=== PATIENT | female | born 1995 | race Caucasian/White ===

== ENCOUNTER 2018-09-28 11:36 | Emergency (ER) | payer OTHER ==
[~2018-09-28] VITALS: Ht 157.5 cm; Wt 49.0 kg
[2018-09-28 11:54] VITALS: BP 107/58
[2018-09-28 12:14] LABS: BILIRUBIN,URINE NEGATIVE (NEG); CLARITY,URINE CLEAR; COLOR,URINE YELLOW; NITRITE,URINE NEGATIVE (NEG); PROTEIN,URINE NEGATIVE (NEG-TRACE); UROBILINOGEN,URINE 0.2 mg/dL (0.2 mg/dL)
[2018-09-28 12:36] LABS: BACTERIA,URINE FEW /HPF (0-FEW); RBC,URINE OCC /HPF (0-2); SQUAMOUS EPITHELIAL CELL,UR FEW /LPF; WBC,URINE OCC /HPF (0-4)
--- NOTE | 2018-09-28 13:03 | RAD ---
OB < 14 WKS History: Abdominal pain in Comparison: None. Findings: Multiple transabdominal sonographic images of the pelvis are submitted. Uterus measured 10.6 x 8.7 x 9.9 cm. There is a single intrauterine gestational sac with identifiable pole. Gestational sac morphology is within normal limits. Amniotic fluid volume is within normal limits. anatomy and placenta are not well visualized at this age of the . [place]-rump length measurement of 4.36 cm corresponds 11 weeks 1 day. Adjusted ultrasound age is 11 weeks 1 day with estimated delivery date by ultrasound of 04/18/2019. LMP dating is not provided. cardiac activity 173 bpm. Left ovary measured 3.1 x 4 x 2.7 cm. There is normal low resistance vascularity of the left ovary. There is a focus of different echogenicity of the left ovary about 3.2 x 1.9 cm. Right ovary measured 2.7 x 1.1 x 1.6 cm with normal low resistance vascularity. No significant free fluid is demonstrated. Impression: 1. There is a single viable intrauterine with adjusted ultrasound age of 11 weeks 1 day with estimated delivery date by ultrasound 04/18/2019. There is hemorrhagic or collapsed corpus luteal cyst of the left ovary. Electronically signed by: Jose Fiore MD (09/28/2018 12:59 PM) [id number]
[2018-09-28 13:15] LABS: BASO % 1 % (0-3); EOS # 0.1 x10^3/uL (0.0-0.7); EOS % 1 % (0-3); HEMOGLOBIN 11.6 g/dL (12.0-15.5); LYMPH # 1.2 x10^3/uL (1.0-4.8); LYMPH % 16 % (24-48); MEAN CORPUSCULAR HEMOGLOBIN 29 pg (25-35); MEAN CORPUSCULAR HGB CONC 33 g/dL (31-37); MEAN CORPUSCULAR VOLUME 86 fL (79-100); MONO # 0.6 x10^3/uL (0.0-1.1); MONO % 8 % (0-9); NEUT # 5.7 x10^3uL (1.8-7.7); NEUT % 75 % (31-73); PLATELET COUNT 232 x10^3/uL (140-400); RED BLOOD COUNT 4.07 x10^6/uL (3.50-5.40); RED CELL DISTRIBUTION WIDTH 16.6 % (11.5-14.5); WHITE BLOOD COUNT 7.7 x10^3/uL (4.0-11.0)
[2018-09-28 13:34] LABS: CALCIUM 9.1 mg/dL (8.5-10.1); CREATININE 0.6 mg/dL (0.6-1.0); GFR 123.9; POTASSIUM 3.6 mmol/L (3.5-5.1)
[2018-09-28 13:42] LABS: ALBUMIN 3.5 g/dL (3.4-5.0); ALBUMIN/GLOBULIN RATIO 0.8 (1.0-1.7); TOTAL BILIRUBIN 0.2 mg/dL (0.2-1.0)
[2018-09-28] MEDS ORDERED: METR500T PO (14:21)
--- NOTE | 2018-09-28 14:22 | PHYS DOC ---
Past Medical History Past Medical History: No Pertinent History Past Surgical History: No Surgical History Alcohol Use: None Drug Use: None Adult General Chief Complaint Chief Complaint: ABDOMINAL PAIN IN HPI HPI Patient is a 23 year old female 3 para 2 currently presenting with mild generalized abdominal pain that has been going on intermittently for 4 days. Patient denies any vaginal bleeding. She states her last menstrual cycle was in June 2018 but she does not remember the date. Denies any nausea vomiting. Denies any back pain. She states she has not seen an AERIAL ERECTOR yet. Review of Systems Review of Systems Constitutional: Denies fever or chills [] Eyes: Denies change in visual acuity, redness, or eye pain [] HENT: Denies nasal congestion or sore throat [] Respiratory: Denies cough or shortness of breath [] Cardiovascular: No additional information not addressed in HPI [] GI: Reports abdominal pain in , denies nausea, vomiting, bloody stools or diarrhea [] : Denies dysuria or hematuria [] Musculoskeletal: Denies back pain or joint pain [] Integument: Denies rash or skin lesions [] Neurologic: Denies headache, focal weakness or sensory changes [] All other systems were reviewed and found to be within normal limits, except as documented in this note. Allergies Allergies Allergies Coded Allergies Type Severity Reaction Last Updated Verified No Known Drug Allergies 10/09/16 No Physical Exam Physical Exam Constitutional: Well developed, well nourished, no acute distress, non-toxic appearance. [] HENT: Normocephalic, atraumatic, bilateral external ears normal, oropharynx moist, no oral exudates, nose normal. [] Eyes: PERRLA, EOMI, conjunctiva normal, no discharge. [] Neck: Normal range of motion, no tenderness, supple, no stridor. [] Cardiovascular:Heart rate regular rhythm, no murmur [] Lungs & Thorax: Bilateral breath sounds clear to auscultation [] Abdomen: Bowel sounds normal, soft, no tenderness, no masses, no pulsatile masses. [] Pelvic exam External pelvic appears normal, cervix is closed, no CMT, no adnexal tenderness. Small amount of white discharge in the vaginal vault. Skin: Warm, dry, no erythema, no rash. [] Back: No tenderness, no CVA tenderness. [] Extremities: No tenderness, no cyanosis, no clubbing, ROM intact, no edema. [] Neurologic: Alert and oriented X 3, normal motor function, normal sensory function, no focal deficits noted. [] Psychologic: Affect normal, judgement normal, mood normal. [] Current Patient Data Vital Signs Vital Signs Date Time Temp Pulse Resp B/P (MAP) Pulse Ox O2 Delivery O2 Flow Rate FiO2 09/28/18 11:54 98.6 75 16 107/58 (74) 95 Room Air 98.6 Lab Values Laboratory Tests Test 09/28/18 11:50 09/28/18 12:02 09/28/18 12:05 09/28/18 13:05 Urine Collection Type Unknown Urine Color Yellow Urine Clarity Clear Urine pH 8.0 Urine Specific [place] 1.020 Urine Protein Negative mg/dL (NEG-TRACE) Urine Glucose (UA) Negative mg/dL (NEG) Urine Ketones (Stick) Negative mg/dL (NEG) Urine Blood Negative (NEG) Urine Nitrite Negative (NEG) Urine Bilirubin Negative (NEG) Urine Urobilinogen Dipstick 0.2 mg/dL (0.2 mg/dL) Urine Leukocyte Esterase Negative (NEG) Urine RBC Occ /HPF (0-2) Urine WBC Occ /HPF (0-4) Urine Squamous Epithelial Cells Few /LPF Urine Bacteria Few /HPF (0-FEW) POC Urine HCG, Qualitative Hcg positive (Negative) Chlamydia DNA Probe Negative (Negative) Neisseria gonorrhoeae DNA Probe Negative (Negative) White Blood Count 7.7 x10^3/uL (4.0-11.0) Red Blood Count 4.07 x10^6/uL (3.50-5.40) Hemoglobin 11.6 g/dL (12.0-15.5) L Hematocrit 35.0 % (36.0-47.0) L Mean Corpuscular Volume 86 fL (79-100) Mean Corpuscular Hemoglobin 29 pg (25-35) Mean Corpuscular Hemoglobin Concent 33 g/dL (31-37) Red Cell Distribution Width 16.6 % (11.5-14.5) H Platelet Count 232 x10^3/uL (140-400) Neutrophils (%) (Auto) 75 % (31-73) H Lymphocytes (%) (Auto) 16 % (24-48) L Monocytes (%) (Auto) 8 % (0-9) Eosinophils (%) (Auto) 1 % (0-3) Basophils (%) (Auto) 1 % (0-3) Neutrophils # (Auto) 5.7 x10^3uL (1.8-7.7) Lymphocytes # (Auto) 1.2 x10^3/uL (1.0-4.8) Monocytes # (Auto) 0.6 x10^3/uL (0.0-1.1) Eosinophils # (Auto) 0.1 x10^3/uL (0.0-0.7) Basophils # (Auto) 0.0 x10^3/uL (0.0-0.2) Maternal Serum HCG Beta Subunit 101163 mIU/mL (0-5) H Sodium Level 135 mmol/L (136-145) L Potassium Level 3.6 mmol/L (3.5-5.1) Chloride Level 99 mmol/L (98-107) Carbon Dioxide Level 27 mmol/L (21-32) Anion Gap 9 (6-14) Blood Urea Nitrogen 9 mg/dL (7-20) Creatinine 0.6 mg/dL (0.6-1.0) Estimated GFR (Cockcroft-Gault) 123.9 BUN/Creatinine Ratio 15 (6-20) Glucose Level 87 mg/dL (70-99) Calcium Level 9.1 mg/dL (8.5-10.1) Total Bilirubin 0.2 mg/dL (0.2-1.0) Aspartate Amino Transferase (AST) 20 U/L (15-37) Alanine Aminotransferase (ALT) 19 U/L (14-59) Alkaline Phosphatase 63 U/L (46-116) Total Protein 8.0 g/dL (6.4-8.2) Albumin 3.5 g/dL (3.4-5.0) Albumin/Globulin Ratio 0.8 (1.0-1.7) L Laboratory Tests 09/28/18 13:05 Laboratory Tests 09/28/18 13:05 Microbiology 09/28/18 Wet Prep - Final, Complete EKG EKG [] Radiology/Procedures Radiology/Procedures []PROCEDURE: OB < 14 WKS OB < 14 WKS History: Abdominal pain in Comparison: None. Findings: Multiple transabdominal sonographic images of the pelvis are submitted. Uterus measured 10.6 x 8.7 x 9.9 cm. There is a single intrauterine gestational sac with identifiable pole. Gestational sac morphology is within normal limits. Amniotic fluid volume is within normal limits. anatomy and placenta are not well visualized at this age of the . [place]-rump length measurement of 4.36 cm corresponds 11 weeks 1 day. Adjusted ultrasound age is 11 weeks 1 day with estimated delivery date by ultrasound of 04/18/2019. LMP dating is not provided. cardiac activity 173 bpm. Left ovary measured 3.1 x 4 x 2.7 cm. There is normal low resistance vascularity of the left ovary. There is a focus of different echogenicity of the left ovary about 3.2 x 1.9 cm. Right ovary measured 2.7 x 1.1 x 1.6 cm with normal low resistance vascularity. No significant free fluid is demonstrated. Impression: 1. There is a single viable intrauterine with adjusted ultrasound age of 11 weeks 1 day with estimated delivery date by ultrasound 04/18/2019. There is hemorrhagic or collapsed corpus luteal cyst of the left ovary. Electronically signed by: Jovi Perez MD (09/28/2018 12:59 PM) [id number] DICTATED and SIGNED BY: JOVI PEREZ MD DATE: 09/28/18 2406 Course & Med Decision Making Course & Med Decision Making Pertinent Labs and Imaging studies reviewed. (See chart for details) This is a 23-year-old female patient 3 para 2 currently presenting with abdominal pain in for 4 days. Positive urine hCG, beta head CT were 192,606. CBC with hemoglobin of 11.6 and hematocrit of 35.0. CMP with no acute findings. Urine analysis is negative for infection, wet prep noted for BV. Discharge and Flagyl. OB ultrasound noted for IUP 11 weeks 1 day. Patient was discharged with instructions to follow-up with her own AERIAL ERECTOR in the course of this week or next week. Tylenol for pain Srin[place]asa Disclaimer Dragon Disclaimer This electronic medical record was generated, in whole or in part, using a voice recognition dictation system. Departure Departure Impression: Primary Impression: Abdominal pain during Additional Impression: Bacterial vaginosis Disposition: 01 HOME, SELF-CARE Condition: STABLE Referrals: NO PCP (PCP) ANGELA MARTINEZ MD follow up next week or this week Patient Instructions: Abdominal Pain During , [id number], Bacterial Vaginosis, [id number] Additional Instructions: You were evaluated in the emergency room for abdominal pain in . You are 11 weeks 1 day . We encourage you to start taking vitamins. Take Tylenol as needed for pain. You also have bacterial vaginosis. Take the prescribed antibiotics until completed. Follow-up with the AERIAL ERECTOR as soon as possible. Scripts Metronidazole (FLAGYL) 500 Mg Tablet 1 TAB PO BID, #14 TAB Prov: LORENZO SHARP APRN 09/28/18 Attending Signature Attending Signature I have reviewed the PA/HOISTING LABORER's note and plan of care. I was available for consultation as needed during the patient's visit in the emergency department. I agree with the clinical impression, plan, and disposition. Problem Qualifiers Primary Impression: Abdominal pain during Trimester: first trimester Qualified Codes: O26.891 - Other specified related conditions, first trimester; R10.9 - Unspecified abdominal pain LORENZO SHARP APRN Sep 28, 2018 14:21 BERNADINE SNELL DO Sep 30, 2018 17:27
[2018-09-29 22:14] LABS: GC PROBE Negative (Negative)
== END 2018-09-28 15:09 | disposition left against medical advice (07) ==
LOC: ER 11:36
DX: O23.591 Infection of other part of genital tract in pregnancy, first trimester (principal); N76.0 Acute vaginitis; B96.89 Other specified bacterial agents as the cause of diseases classified elsewhere; R10.84 Generalized abdominal pain; Z3A.11 11 weeks gestation of pregnancy
CPT/HCPCS: 36415; 76801; 80053; 81001; 81025; 84702; 85025; 87491; 87591; 99285; Q0111